=== PATIENT | male | born 1995 | race Caucasian/White ===

== ENCOUNTER 2024-04-20 09:38 | Emergency (ER) | payer BC ==
[2024-04-20] MEDS: LORazepam 2 MG/ML VIAL IVP STA (10:57)
[2024-04-20] MEDS: ONDANSETRON 4 MG/2 ML VIAL IVP STA (10:59)
[2024-04-20] MEDS: SODIUM CHLORIDE 0.9% 1,000 ML IV STA (11:03)
[2024-04-20] MEDS: PHENobarbital 65 MG/ML VIAL IV STA (11:06)
[2024-04-20] MEDS: PHENobarbital 65 MG/ML VIAL IM STA (11:11)
[2024-04-20 11:53] LABS: BASOPHILS # (AUTO) 0.1 10^3/uL (0.0-0.1); BASOPHILS % (AUTO) 0.6 %; EOSINOPHILS # (AUTO) 0.2 10^3/uL (0.0-0.7); HCT - HEMATOCRIT 46.5 % (42.0-52.0); HGB - HEMOGLOBIN 15.5 g/dL (14.0-18.0); LYMPHOCYTES # (AUTO) 2.5 10^3/uL (1.5-3.5); LYMPHOCYTES % (AUTO) 32.7 %; MEAN CORPUSCULAR HEMOGLOBIN 30.2 pg (27.0-31.0); MEAN CORPUSCULAR HGB CONC 33.3 g/dL (32.0-36.0); MEAN CORPUSCULAR VOLUME 90.5 fL (80.0-94.0); MEAN PLATELET VOLUME 8.7 fL (7.4-11.4); MONOCYTES # (AUTO) 0.6 10^3/uL (0.0-1.0); MONOCYTES % (AUTO) 7.1 %; NEUTROPHILS # (AUTO) 4.3 10^3/uL (1.5-6.6); NEUTROPHILS % (AUTO) 56.3 %; PLT - PLATELET COUNT 261 10^3/uL (130-450); RED BLOOD COUNT 5.14 10^6/uL (4.70-6.10); RED CELL DISTRIBUTION WIDTH 12.6 % (12.0-15.0); WHITE BLOOD COUNT 7.7 x10^3/uL (4.8-10.8)
[2024-04-20 12:04] VITALS: O2SAT 100
[2024-04-20 12:05] LABS: ALBUMIN 4.6 g/dL (3.2-5.5); ALBUMIN/GLOBULIN RATIO 1.4 (1.0-2.2); BILIRUBIN,TOTAL 0.5 mg/dL (0.2-1.0); CALCIUM 9.7 mg/dL (8.5-10.3); CREATININE 0.8 mg/dL (0.6-1.3); POTASSIUM 4.2 mmol/L (3.5-4.5); TOTAL PROTEIN 7.8 g/dL (6.4-8.9)
--- NOTE | 2024-04-20 12:21 | ED Physician Documentation ---
History of Present Illness - Stated complaint Stated Complaint: CHEST PX, ANXIETY, N/V/D - Chief complaint Chief Complaint: General - History obtained from History obtained from: Patient - Additonal information Additional information: The patient comes to the emergency department chief complaint of alcohol withdrawal. He last drink about a day and a half ago. He normally drinks a liter of vodka per day. He states that he is planning to enter rehab at the beginning of May and just wants to try to get through until then. He has a history of alcoholism for some time and has quit previously and states he knows he needs to quit again. He denies any other substance use. He has a history of alcohol withdrawal seizures previously. No DTs. He is complaining of nausea, vomiting, shakiness, and sweating. PD PAST MEDICAL HISTORY - Present Medications Home Medications: Ambulatory Orders Medication Instructions Recorded Confirmed Ondansetron Odt [Zofran] 4 mg TL Q6H PRN #10 tablet 04/20/24 chlordiazePOXIDE [Librium] 25 mg PO BID PRN #28 cap 04/20/24 chlordiazePOXIDE [Librium] 25 mg PO Q6H PRN #12 cap 04/20/24 chlordiazePOXIDE [Librium] 50 mg PO Q6H PRN #16 cap 04/20/24 diphenhydrAMINE [Benadryl] 1 cap PO DAILY 04/20/24 04/20/24 - Allergies Allergies/Adverse Reactions: Allergies Allergy/AdvReac Type Severity Reaction Status Date / Time No Known Drug Allergies Allergy Verified 04/20/24 09:55 - Social History Does the pt smoke?: No Smoking Status: Never smoker ETOH Use: Liquor Does the pt have substance abuse?: No - Immunizations Immunizations are current?: Yes - POLST Patient has POLST: No PD ED PE NORMAL - Vitals Vital signs reviewed: Yes - General General: Alert and oriented X 3, No acute distress, Well developed/nourished - HEENT HEENT: Atraumatic, EOMI, Moist mucous membranes - Neck Neck: Supple, no meningeal sign - Cardiac Cardiac: RRR, No murmur - Respiratory Respiratory: No respiratory distress, Clear bilaterally - Abdomen Abdomen: Soft, Non tender, Non distended - Derm Derm: Normal color, No rash, Other (Warm, mild diaphoresis.) - Extremities Extremities: No deformity - Neuro Neuro: Alert and oriented X 3, line ordering clinician 2-12 intact, No motor deficit, No sensory deficit, Normal speech, Other (Mild fine tremors diffusely.) - Psych Psych: Normal mood, Normal affect (The patient is calm and cooperative.) Results - Vitals Vitals: Oxygen O2 Source Room air - Labs Labs: Laboratory Tests 04/20/24 04/20/24 10:05 10:05 WBC 7.7 RBC 5.14 Hgb 15.5 Hct 46.5 MCV 90.5 MCH 30.2 MCHC 33.3 RDW 12.6 Plt Count 261 MPV 8.7 Neut # (Auto) 4.3 Lymph # (Auto) 2.5 Emanuel # (Auto) 0.6 Eos # (Auto) 0.2 Baso # (Auto) 0.1 Absolute Nucleated RBC 0.00 Nucleated RBC % 0.0 Sodium 138 Potassium 4.2 Chloride 102 Carbon Dioxide 25 Anion Gap 11.0 BUN 11 Creatinine 0.8 Estimated GFR (MDRD) 116 Glucose 120 H Calcium 9.7 Total Bilirubin 0.5 AST 74 H ALT 109 H Alkaline Phosphatase 56 Total Protein 7.8 Albumin 4.6 Globulin 3.2 Albumin/Globulin Ratio 1.4 Lipase 32 PD Medical Decision Making - ED course Complexity details: reviewed results, re-evaluated patient, considered differential, d/w patient ED course: The patient was treated symptomatically for his alcohol withdrawal with phenobarbital and benzodiazepines. He is also given IV fluids. I have placed him on a Librium taper and will keep him on a low-dose of Librium until The time of his admission to rehab. We have discussed indications for return including if the symptoms seem to be worsening despite treatment of the alcohol withdrawal. Departure - Departure Disposition: 01 Home, Self Care Clinical Impression: Alcohol withdrawal Qualifiers: Complication of substance-induced condition: uncomplicated Qualified Code(s): F10.930 - Alcohol use, unspecified with withdrawal, uncomplicated Condition: Stable Instructions: ED Withdrawal Alcohol Prescriptions: chlordiazePOXIDE [Librium] 50 mg PO Q6H PRN #16 cap PRN Reason: Alcohol Withdrawal chlordiazePOXIDE [Librium] 25 mg PO Q6H PRN #12 cap PRN Reason: Alcohol Withdrawal chlordiazePOXIDE [Librium] 25 mg PO BID PRN #28 cap PRN Reason: Alcohol Withdrawal Ondansetron Odt [Zofran] 4 mg TL Q6H PRN #10 tablet PRN Reason: Nausea / Vomiting Comments: You have been treated for alcohol withdrawal today with IV fluids, Zofran, phenobarbital, and Ativan. I have sent prescriptions for your Librium to the [facility] here in [place]. You should take 2 capsules 4 times a day for the first 2 days, then 1 capsule 4 times a day for the next 2 days, then 1 capsule twice a day thereafter. Forms: PCP List Discharge Date/Time: 04/20/24 12:36
[2024-04-20 12:37] VITALS: BP 153/92
== END 2024-04-20 12:36 | disposition home or self-care (01) ==
LOC: ED 09:38
DX: F10.930 Alcohol use, unspecified with withdrawal, uncomplicated (principal)
CPT/HCPCS: 36415; 80053; 83690; 85025; 93005; 96374; 96375; 99283; 99284; J2060; J2560